=== PATIENT | female | born 1995 | race Caucasian/White ===

== ENCOUNTER 2016-06-12 09:51 | Emergency (ER) | payer BC ==
[~2016-06-12] VITALS: Ht 162.6 cm; Wt 95.9 kg
[~2016-06-12 09:51] MED LIST: ESOMEPRAZOLE MA40 MG PO; FLOMAX0.4 MG PO; IMITREX PO; MOTRIN400 MG PO; PERCOCET 10/1 TABLET PO; PRILOSEC40 MG PO; SEPTRA DS TABL1 EACH PO; TOPIRAMATE25 MG PO; TORADOL10 MG PO; TRAMADOL HCL E200 M1 PO; ZANTAC150 MG PO; ZOFRAN4 MG PO
[2016-06-12 10:27] LABS: EOSINOPHIL (%) 0.6 % (0-5); EOSINOPHIL COUNT 0.1 K/uL (0-0.3); HEMATOCRIT 37.4 % (36.0-46.0); IMMATURE GRANULOCYTE (%) 0.3 % (0.0-0.7); IMMATURE GRANULOCYTE COUNT 0.3 K/uL; LYMPHOCYTE COUNT 1.6 K/uL (1.0-2.8); MCHC 34.8 G/DL (30.0-36.0); MCV 86.4 FL (83-99); MEAN PLAT.VOLUME 9.8 uM^3 (9.5-12.4); MONOCYTE (%) 4.8 % (3-12); MONOCYTE COUNT 0.5 K/uL (0-0.8); NEUTROPHIL (%) 79.2 % (45-76); NEUTROPHIL COUNT 8.6 K/uL (1.8-6.4); PLATELET COUNT 203 K/uL (156-360); RBC DIS.WIDTH-CV 12.6 % (11.8-14.6); RBC DIS.WIDTH-SD 38.8 % (39-53); RED BLOOD COUNT 4.33 M/uL (3.80-5.20); WHITE BLOOD COUNT 10.8 K/uL (4.1-10.2)
[2016-06-12 10:34] LABS: CHLORIDE 109 mEq/L (99-109); SODIUM 137 mEq/L (136-147)
[2016-06-12 10:35] LABS: ADD MIUA? YES; BILIRUBIN NEGATIVE; BLOOD NEGATIVE; COLOR YELLOW ((YELLOW)); GLUCOSE (STRIP) NEGATIVE; KETONES NEGATIVE; LEUKOCYTES TRACE; NITRITE NEGATIVE; PH, URINE 6.5 (5-8); PROTEIN (STRIP) NEGATIVE; SPECIFIC GRAVITY 1.021 (1.000-1.030); UROBILINOGEN 0.2 MG/DL (0.2-1.0)
[2016-06-12 10:36] LABS: GLUCOSE 89 mg/dL (70-99)
[2016-06-12 10:37] LABS: ANION GAP 10 MEQ/L (2-14)
[2016-06-12 10:40] LABS: GFR ESTIMATE (CALCULATED) > 59 mL/min/
[2016-06-12 10:41] LABS: UREA NITROGEN (BUN) 7 mg/dL (9-23)
[2016-06-12] MEDS ORDERED: MACROBID100 MG PO (10:45)
[2016-06-12] MEDS ORDERED: PRENATABS FA T1 EACH PO (10:46)
[2016-06-12 10:52] LABS: BACTERIA 2+ /HPF; CASTS NONE SEEN /LPF; CRYSTALS NONE SEEN; EPITHELIAL CELLS 1+ /HPF; MUCUS NONE SEEN /LPF; RED BLOOD CELLS 0-5 /HPF (0-5); UCUL ADDED? NO; WHITE BLOOD CELLS 0-5 /HPF (0-5)
[2016-06-12 11:04] LABS: QUANTITATIVE HCG 16592.1 MIU/ML
[2016-06-12 13:33] VITALS: BP 137/66
== END 2016-06-12 13:36 | disposition home or self-care (01) ==
LOC: EME 09:51
PROVIDERS: Emergency Medicine
DX: O99.89 Other specified diseases and conditions complicating pregnancy, childbirth and the puerperium (principal); R10.30 Lower abdominal pain, unspecified; Z3A.15 15 weeks gestation of pregnancy
CPT/HCPCS: 76770; 76805; 80048; 81003; 84702; 85025; 99281; 99284; J7030

== ENCOUNTER 2016-11-15 08:49 | Outpatient (CLI) | payer BC ==
[2016-11-15] VITALS (17 sets, daily range): BP systolic 118–139; BP diastolic 61–99
[~2016-11-15] VITALS: Ht 162.6 cm; Wt 120.0 kg
[~2016-11-15 08:49] MED LIST changes: +MACROBID100 MG PO; +PRENATABS FA T1 EACH PO
[2016-11-15 10:56] LABS: EOSINOPHIL (%) 0.3 % (0-5); HEMATOCRIT 34.6 % (36.0-46.0); IMMATURE GRANULOCYTE (%) 1.7 % (0.0-0.7); IMMATURE GRANULOCYTE COUNT 0.3 K/uL; INSTRUMENT ABS NEUTROPHIL CT 12.2 K/uL; LYMPHOCYTE COUNT 1.8 K/uL (1.0-2.8); MCH 29.8 PG (29.0-34.0); MCHC 33.5 G/DL (30.0-36.0); MCV 88.9 FL (83-99); MONOCYTE (%) 6.6 % (3-12); NEUTROPHIL (%) 79.6 % (45-76); NEUTROPHIL COUNT 12.2 K/uL (1.8-6.4); PLATELET COUNT 172 K/uL (156-360); RBC DIS.WIDTH-CV 13.3 % (11.8-14.6); RED BLOOD COUNT 3.89 M/uL (3.80-5.20); WHITE BLOOD COUNT 15.4 K/uL (4.1-10.2)
[2016-11-15 11:22] LABS: ALKALINE PHOSPHATASE 210 IU/L (3-129); ANION GAP 9 MEQ/L (2-14); CHLORIDE 111 MEQ/L (99-109); GFR ESTIMATE (CALCULATED) > 59 mL/min/; GLUCOSE 63 mg/dL (70-99); POTASSIUM 4.1 MEQ/L (3.7-5.4); SAMPLE HEMOLYSIS CHECK 0; SAMPLE ICTERIC CHECK 0; SAMPLE LIPEMIA CHECK 0; SODIUM 140 MEQ/L (136-147); TOTAL BILIRUBIN 0.2 MG/DL (0.0-1.0); UREA NITROGEN (BUN) 7 mg/dL (9-23)
[2016-11-15 11:53] LABS: UR CREATININE CONCENTRATION 62.4 MG/DL
== END 2016-11-15 13:55 | disposition home or self-care (01) ==
LOC: LDRP-OP 08:49 → 2WEST 08:51 → LDRP-OP 12-30 13:41
PROVIDERS: Obstetrics & Gynecology
DX: O13.3 Gestational [pregnancy-induced] hypertension without significant proteinuria, third trimester (principal); Z3A.38 38 weeks gestation of pregnancy
CPT/HCPCS: 59025; 80053; 82570; 84156; 85025; G0378

== ENCOUNTER 2016-11-18 14:33 | Inpatient (IN) | payer BC ==
[2016-11-18] VITALS (15 sets, daily range): BP systolic 125–158; BP diastolic 68–93
[~2016-11-18] VITALS: Ht 165.1 cm; Wt 109.0 kg
[2016-11-18 16:00] LABS: EOSINOPHIL (%) 0.4 % (0-5); EOSINOPHIL COUNT 0.1 K/uL (0-0.3); HEMATOCRIT 30.9 % (36.0-46.0); IMMATURE GRANULOCYTE (%) 1.3 % (0.0-0.7); IMMATURE GRANULOCYTE COUNT 0.2 K/uL; INSTRUMENT ABS NEUTROPHIL CT 10.6 K/uL; LYMPHOCYTE COUNT 1.9 K/uL (1.0-2.8); MCH 29.6 PG (29.0-34.0); MCHC 33.3 G/DL (30.0-36.0); MCV 88.8 FL (83-99); MONOCYTE (%) 6.4 % (3-12); MONOCYTE COUNT 0.9 K/uL (0-0.8); NEUTROPHIL (%) 77.9 % (45-76); NEUTROPHIL COUNT 10.6 K/uL (1.8-6.4); PLATELET COUNT 164 K/uL (156-360); RBC DIS.WIDTH-CV 13.3 % (11.8-14.6); RBC DIS.WIDTH-SD 43.1 % (39-53); RED BLOOD COUNT 3.48 M/uL (3.80-5.20); WHITE BLOOD COUNT 13.6 K/uL (4.1-10.2)
[2016-11-18 16:13] LABS: ANION GAP 9 MEQ/L (2-14); CHLORIDE 112 MEQ/L (99-109); POTASSIUM 3.7 MEQ/L (3.7-5.4); SAMPLE HEMOLYSIS CHECK 0; SAMPLE ICTERIC CHECK 0; SAMPLE LIPEMIA CHECK 0; SODIUM 141 MEQ/L (136-147); TOTAL BILIRUBIN 0.2 MG/DL (0.0-1.0)
[2016-11-18 16:21] LABS: ALKALINE PHOSPHATASE 184 IU/L (3-129); GFR ESTIMATE (CALCULATED) > 59 mL/min/; GLUCOSE 79 mg/dL (70-99); UREA NITROGEN (BUN) 10 mg/dL (9-23); URIC ACID 6.3 mg/dL (3.1-9.2)
[2016-11-18 17:22] LABS: UR CREATININE CONCENTRATION 68.6 MG/DL
[2016-11-19] VITALS (27 sets, daily range): BP systolic 118–145; BP diastolic 57–90
[2016-11-20] VITALS (31 sets, daily range): BP systolic 115–166; BP diastolic 62–105
[2016-11-21] VITALS (9 sets, daily range): BP systolic 115–136; BP diastolic 58–79
[2016-11-21 06:25] LABS: EOSINOPHIL (%) 0.2 % (0-5); HEMATOCRIT 27.7 % (36.0-46.0); IMMATURE GRANULOCYTE (%) 0.8 % (0.0-0.7); IMMATURE GRANULOCYTE COUNT 0.1 K/uL; INSTRUMENT ABS NEUTROPHIL CT 13.8 K/uL; MCH 28.6 PG (29.0-34.0); MCHC 31.8 G/DL (30.0-36.0); MCV 89.9 FL (83-99); MONOCYTE (%) 6.1 % (3-12); NEUTROPHIL (%) 81.3 % (45-76); NEUTROPHIL COUNT 13.8 K/uL (1.8-6.4); PLATELET COUNT 165 K/uL (156-360); RBC DIS.WIDTH-CV 13.5 % (11.8-14.6); RBC DIS.WIDTH-SD 43.8 % (39-53); RED BLOOD COUNT 3.08 M/uL (3.80-5.20)
[2016-11-22 03:50] VITALS: BP 119/67
[2016-11-22 22:30] VITALS: BP 143/89
[2016-11-23 03:22] VITALS: BP 138/77
[2016-11-23 07:01] VITALS: BP 129/71
[2016-11-23] MEDS ORDERED: MOTRIN800 MG PO (09:41)
[2016-11-23] MEDS ORDERED: PERCOCET 5/31 TABLET PO (09:41)
[2016-11-23 15:01] VITALS: BP 133/74
== END 2016-11-23 17:20 | disposition home or self-care (01) | DRG 766 ==
LOC: LDRP-OP 14:33 → 2WEST 14:34 → LDRP-OP 12-30 14:07
PROVIDERS: Obstetrics & Gynecology Gynecology
PROC: 10D00Z1 Extraction of Products of Conception, Low, Open Approach (ICD-10-PCS; principal; 2016-11-20)
DX: O15.1 Eclampsia complicating labor (principal); O61.9 Failed induction of labor, unspecified; O99.214 Obesity complicating childbirth; N85.8 Other specified noninflammatory disorders of uterus; O14.04 Mild to moderate pre-eclampsia, complicating childbirth; O13.4 Gestational [pregnancy-induced] hypertension without significant proteinuria, complicating childbirth; O62.0 Primary inadequate contractions; Z37.0 Single live birth; Z3A.38 38 weeks gestation of pregnancy
CPT/HCPCS: 80053; 82570; 84156; 84550; 85025; 86900; 86901; 88307; C1726; C1755; G0378; J0595; J0690; J1170; J2274; J2405; J2590; J3010; J7120

== ENCOUNTER → 2016-11-28 | Outpatient (CLI) | payer BC ==
[~2016-11-28] MED LIST changes: +MOTRIN800 MG PO; +PERCOCET 5/31 TABLET PO
== END | disposition home or self-care (01) ==
LOC: LAC 11:44
DX: O92.79 Other disorders of lactation (principal)
CPT/HCPCS: G0463

== ENCOUNTER 2017-09-23 10:39 | Emergency (ER) | payer BC ==
[~2017-09-23] VITALS: Ht 165.1 cm; Wt 103.0 kg
[2017-09-23 11:33] LABS: APPEARANCE CLEAR ((CLEAR)); BILIRUBIN NEGATIVE; BLOOD SMALL; COLOR YELLOW ((YELLOW)); GLUCOSE (STRIP) NEGATIVE; KETONES NEGATIVE; LEUKOCYTES NEGATIVE; NITRITE NEGATIVE; PROTEIN (STRIP) 30; SPECIFIC GRAVITY 1.016 (1.000-1.030); UROBILINOGEN 0.2 MG/DL (0.2-1.0)
[2017-09-23 11:48] LABS: BACTERIA RARE /HPF; EPITHELIAL CELLS RARE /HPF; MUCUS TRACE /LPF; RED BLOOD CELLS 0-5 /HPF (0-5); WHITE BLOOD CELLS 0-5 /HPF (0-5)
[2017-09-23 12:56] VITALS: BP 133/79
== END 2017-09-23 12:56 | disposition home or self-care (01) ==
LOC: EME 10:39
PROVIDERS: Physician Assistant
DX: N92.6 Irregular menstruation, unspecified (principal); G43.909 Migraine, unspecified, not intractable, without status migrainosus; Z87.442 Personal history of urinary calculi; Z90.49 Acquired absence of other specified parts of digestive tract
CPT/HCPCS: 81003; 84702; 99281; 99284